=== PATIENT | female | born 1975 | race American Indian/Alaskan Native ===

== ENCOUNTER 2021-12-12 16:05 | Emergency (ER) | payer MEDICAID ==
--- NOTE | 2021-12-12 18:25 | XRay Report ---
CHEST 2 VIEWS INDICATION / CLINICAL INFORMATION: MARLENI, cough. COMPARISON: None available. FINDINGS: SUPPORT DEVICES: None. HEART / MEDIASTINUM: No significant abnormality. LUNGS / PLEURA: No significant pulmonary or pleural abnormality. No pneumothorax. ADDITIONAL FINDINGS: No significant additional findings. IMPRESSION: 1. No acute findings. Signer Name: Aly Garcia MD Signed: 12/12/2021 6:21 PM Workstation Name: [id number]
[2021-12-12] MEDS ORDERED: predniSONE 20 MG TAB PO ONE (20:58)
[2021-12-12] MEDS ORDERED: ALBUTEROL 2.5 MG/3 ML NEBU IH STA (20:58)
--- NOTE | 2021-12-12 21:42 | Emergency Department Report ---
ED General Adult HPI - General Chief complaint: Upper Respiratory Infection Stated complaint: COLD SYMPTOMS Time Seen by Provider: 12/12/21 20:58 Source: patient Mode of arrival: Ambulatory Limitations: No Limitations - History of Present Illness Initial comments: Patient 46-year-old female who presents for productive cough yellow thick with nocturnal wheezing for the past month. Patient denies history of asthma or bronchitis. There has been no nausea or vomiting there is intermittent fever and no T-max noted no fever noted in triage today. Patient states symptoms are just lingering. Patient denies other history. Symptoms are exacerbated by environmental exposure. Symptoms are relieved by nothing tried. Patient rates his symptoms at 5/10 at this time. Severity scale (0 -10): 7 - Related Data Previous Rx's Medication Instructions Recorded Last Taken Type Albuterol Mdi (or & Nicu Only) 2 puff IH QID PRN #8.5 gram 12/12/21 Unknown Rx [ProAir HFA Inhaler] Azithromycin 500 mg PO DAILY 5 Days #5 tab 12/12/21 Unknown Rx Ibuprofen [Motrin 800 MG tab] 800 mg PO Q8HR PRN #30 tablet 12/12/21 Unknown Rx predniSONE [Deltasone] 40 mg PO DAILY 5 Days #10 tab 12/12/21 Unknown Rx Allergies Allergy/AdvReac Type Severity Reaction Status Date / Time No Known Allergies Allergy Unverified 12/12/21 17:58 ED Review of Systems ROS: Stated complaint: COLD SYMPTOMS Other details as noted in HPI Constitutional: chills, fever, malaise Eyes: denies: eye pain, eye discharge, vision change ENT: denies: ear pain, throat pain Respiratory: cough, shortness of breath, wheezing Cardiovascular: denies: chest pain, palpitations Endocrine: no symptoms reported Gastrointestinal: denies: abdominal pain, nausea, vomiting, diarrhea Genitourinary: denies: urgency, dysuria, discharge Musculoskeletal: denies: back pain, joint swelling, arthralgia Skin: denies: rash, lesions Neurological: denies: headache, weakness, numbness, paresthesias, confusion, vertigo Psychiatric: denies: anxiety, depression Hematological/Lymphatic: denies: easy bleeding, easy bruising ED Past Medical Hx - Past Medical History Additional medical history: fibroids - Surgical History Additional Surgical History: hernia x4 - Medications Home Medications: Home Medications Medication Instructions Recorded Confirmed Last Taken Type Albuterol Mdi (or & Nicu Only) 2 puff IH QID PRN #8.5 gram 12/12/21 Unknown Rx [ProAir HFA Inhaler] Azithromycin 500 mg PO DAILY 5 Days #5 tab 12/12/21 Unknown Rx Ibuprofen [Motrin 800 MG tab] 800 mg PO Q8HR PRN #30 tablet 12/12/21 Unknown Rx predniSONE [Deltasone] 40 mg PO DAILY 5 Days #10 tab 12/12/21 Unknown Rx ED Physical Exam - General Limitations: No Limitations General appearance: alert, in no apparent distress - Head Head exam: Present: atraumatic, normocephalic - Eye Eye exam: Present: normal appearance, PERRL, EOMI. Absent: conjunctival injection, nystagmus Pupils: Present: normal accommodation - ENT ENT exam: Present: normal orophraynx, mucous membranes moist, TM's normal bilaterally, normal external ear exam - Neck Neck exam: Present: normal inspection, full ROM. Absent: tenderness, meningismus, lymphadenopathy, thyromegaly - Respiratory Respiratory exam: Present: wheezes (Mild expiratory wheezes bilateral upper lobes), chest wall tenderness (Right lateral chest wall tenderness to deep palpation no crepitus no ecchymosis no swelling no step-off). Absent: rales, rhonchi, stridor, decreased breath sounds - Expanded Respiratory Exam Expanded Location: Wheezes: Right, Left, Upper - Cardiovascular Cardiovascular Exam: Present: regular rate, normal rhythm, normal heart sounds. Absent: systolic murmur, diastolic murmur, rubs, gallop - GI/Abdominal GI/Abdominal exam: Present: soft, normal bowel sounds. Absent: distended, tenderness - Rectal Rectal exam: Present: deferred - Extremities Exam Extremities exam: Present: normal inspection, full ROM, normal capillary refill. Absent: pedal edema - Back Exam Back exam: Present: normal inspection, full ROM. Absent: CVA tenderness (R), CVA tenderness (L) - Neurological Exam Neurological exam: Present: alert, oriented X3, CN II-XII intact, normal gait - Expanded Neurological Exam Expanded Patient oriented to: Present: person, place, time Speech: Present: fluid speech Motor strength exam: RUE: 5, LUE: 5, RLE: 5, LLE: 5 Best Eye Response ([place]): (4) open spontaneously Best Motor Response ([place]): (6) obeys commands Best Verbal Response ([place]): (5) oriented [place] Total: 15 - Psychiatric Psychiatric exam: Present: normal affect, normal mood - Skin Skin exam: Present: warm, dry, intact, normal color. Absent: rash ED Course Vital Signs 12/12/21 17:57 Temperature 99 F Pulse Rate 70 Respiratory 18 Rate Blood Pressure 137/97 [Left] O2 Sat by Pulse 99 Oximetry ED Medical Decision Making - Radiology Data Radiology results: report reviewed, image reviewed HEST 2 VIEWS INDICATION / CLINICAL INFORMATION: MARLENI, cough. COMPARISON: None available. FINDINGS: SUPPORT DEVICES: None. HEART / MEDIASTINUM: No significant abnormality. LUNGS / PLEURA: No significant pulmonary or pleural abnormality. No pneumothorax. ADDITIONAL FINDINGS: No significant additional findings. IMPRESSION: 1. No acute findings. Signer Name: Aly Garcia MD Signed: 12/12/2021 6:21 PM Workstation Name: [id number] Transcribed By: TL Dictated By: Aly Garcia MD Electronically Authenticated By: Aly Garcia MD Signed Date/Time: 12/12/211820 DD/ 19 TD/TT: - Medical Decision Making Symptoms are improved. Patient is amatory throughout ED and return to room without increased shortness of breath or wheezing. There is no chest pain no nausea vomiting no diaphoresis. No other history. Chest x-ray normal no infiltrates no opacities. However given persistent persistent symptoms for 1 month plan DC to home with prescriptions Z-Chai, albuterol inhaler, short burst of prednisone. Follow-up with primary care doctor in 2 to 3 days. Return to emergency department if symptoms worsen. Patient advised to get COVID testing. Patient declined same. Patient DC'd home in stable condition at this time. Critical care attestation.: If time is entered above; I have spent that time in minutes in the direct care of this critically ill patient, excluding procedure time. ED Disposition Clinical Impression: Bronchitis Disposition: 01 HOME / SELF CARE / HOMELESS Is pt being admited?: No Does the pt Need Aspirin: No Condition: Stable Instructions: Chronic Bronchitis (ED), Upper Respiratory Infection, Adult, Fcin-ty-Atra Additional Instructions: Take medications as prescribed, follow-up with your doctor in 2 to 3 days. Return to emergency department should symptoms worsen. Prescriptions: Azithromycin 500 mg PO DAILY 5 Days #5 tab predniSONE [Deltasone] 40 mg PO DAILY 5 Days #10 tab Ibuprofen [Motrin 800 MG tab] 800 mg PO Q8HR PRN #30 tablet PRN Reason: Pain fever Albuterol Mdi (or & Nicu Only) [ProAir HFA Inhaler] 2 puff IH QID PRN #8.5 gram PRN Reason: Shortness Of Breath Referrals: MELISSA RAMOS MD [Staff Physician] - 3-5 Days Forms: Work/School Release Form(ED) Time of Disposition: 21:48
[2021-12-12 22:37] VITALS: BP 132/91
== END 2021-12-12 22:57 | disposition home or self-care (01) ==
LOC: ED 16:05
DX: J40 Bronchitis, not specified as acute or chronic (principal)
CPT/HCPCS: 71046; 94640; 99283